=== PATIENT | male | born 1970 | race Caucasian/White ===

== ENCOUNTER 2020-11-03 19:26 | Emergency (ER) | payer OTHER, SELFPAY ==
[2020-11-03 20:30] VITALS: BP 142/94; PULSE 83; RESP 19; TEMP 37.1; O2SAT 98; BMI 31.0
--- NOTE | 2020-11-03 21:06 | HMH.EDUTC ---
[facility] [place] Disposition Clinical Impression: Cellulitis Qualifiers: Site of cellulitis: unspecified site Qualified Code(s): L03.90 - Cellulitis, unspecified Disposition: Home, Self-Care Condition on Discharge: Good Instructions: How to Care for an Insect Bite or Sting, Insect Bites and Stings, DI for Insect Bites and Stings Additional Instructions: Ice to area 20 min every couple of hours may help with pain and swelling Over the counter Benadryl may help with itching and swelling associated with reaction to sting Follow up with your Family Doctor if no improvement or any worsening of symptoms Prescriptions: cephALEXin [cephALEXin 500mg capsule*] 500 mg PO Q6H 7 Days #28 cap Transmission Status: Pending to [facility] #[id number] Referrals: Provider,Referral, MD [Primary Care Provider] - As needed Time of Disposition: 21:27 Medical Decision Making - Yury Inquiry Pt receiving controlled substance: No Yury was queried for this patient: No Vital Signs: 11/03/20 20:30 11/03/20 21:15 Temperature 98.8 F 98.8 F Temperature Source Oral Pulse Rate 83 Pulse Rate [Right Brachial] 83 Respiratory Rate 19 19 Blood Pressure 142/94 H Blood Pressure [Right Arm] 142/94 H Blood Pressure Mean [Right Arm] 110 Blood Pressure Source [Right Arm] Automatic Cuff Blood Pressure Position [Right Arm] Sitting 02 Sat by Pulse Oximetry 98 Oxygen Delivery Method Room Air Orders (Tests/Meds): ED MEDICATIONS Discontinued Medications Generic Name Dose Route Start Last Admin Trade Name Freq PRN Reason Stop Dose Admin Methylprednisolone Sodium Succinate 125 mg 11/03/20 21:08 11/03/20 21:15 Methylprednisolone Sod Succ 125mg Vial IM 11/03/20 21:09 125 mg ONCE ONE Administration [facility] [place] HPI - General Stated complaint: insect bite l Leg Time Seen by Provider: 11/03/20 21:06 Mode of Arrival: Ambulatory Source of Information: Patient Limitations: No Limitations Description of Symptoms (Recalled from Triage Doc. by RN): PATIENT C/O POSSIBLE BEE STING OR SPIDER BITE TO LEFT ANKLE SINCE TUESDAY HEENT Symptoms (Recalled from RN notes): No Resp Symptoms (Recalled from RN notes): No Skin Symptoms (Recalled from RN notes): Yes MS Symptoms (Recalled from RN notes): No Functional Status (Recalled from RN notes): WNL - History of Present Illness Provider Complaint: Patient state that he was cutting grass on Tuesday when something stung him on his left ankle States that noticed he had some swelling and he started watching it State that since then it has continued to swell and feeling tight and this evening the swelling was moving on up his leg red and warm so he came in to get it checked - Related Data Previous Rx's Medication Instructions Recorded cephALEXin [cephALEXin 500mg 500 mg PO Q6H 7 Days #28 cap 11/03/20 capsule*] Allergies Allergy/AdvReac Type Severity Reaction Status Date / Time No Known Allergies Allergy Verified 11/03/20 21:02 - Worker's Comp Is this a Worker's Comp case?: No [facility] History - Hepatitis A Screen Drug use history?: No High risk sexual behaviors?: No History of sexually transmitted infection?: No Currently employed?: No Childcare worker?: No Do you have indoor plumbing?: Yes Do you have electricity?: Yes Attestation statement:: This patient has been screened for Hepatitis A risk factors. I have reviewed the patient's past medical history: Yes Medical History: Reports:: Cancer - Social History Alcohol Intake: never Occupational Status: other ROS Obtained: Yes All systems reviewed & no additional complaints, Yes Systems reviewed as appropriate & no additional complaints - Constitutional Constitutional: Reports system reviewed and no additional complaints, except as docu, Denies body ache, Denies chills, Denies fever(s) - ENT Ears, Nose, Mouth, and Throat: Reports system reviewed and no additional complaints, except as docu - Cardiovascular Cardiovascul
[2020-11-03 21:15] VITALS: BP 142/94; PULSE 83; RESP 19; TEMP 37.1; O2SAT 98
== END 2020-11-03 21:28 | disposition home or self-care (01) ==
PROVIDERS: Emergency Provider Nurse Practitioner
DX: L03.116 Cellulitis of left lower limb (principal); S90.562A Insect bite (nonvenomous), left ankle, initial encounter; W57.XXXA Bitten or stung by nonvenomous insect and other nonvenomous arthropods, initial encounter
CPT/HCPCS: 96372; 99202; G0463

== ENCOUNTER 2021-06-01 14:28 | Emergency (ER) | payer BC, SELFPAY ==
[2021-06-01 15:50] VITALS: BP 127/87; PULSE 88; RESP 18; TEMP 37.3; O2SAT 98; BMI 30.2
--- NOTE | 2021-06-01 15:59 | HMH.EDUTC ---
[facility] [place] Disposition Clinical Impression: Otitis media Qualifiers: Otitis media type: unspecified Laterality: right Qualified Code(s): H66.91 - Otitis media, unspecified, right ear Disposition: Home, Self-Care Condition on Discharge: Good Instructions: Middle Ear Infection, Cough Additional Instructions: *Monitor Temp, Over the counter Motrin or Tylenol as directed/as needed Tylenol every 4 hours and Motrin every 6 hours (as long as your family doctor has told you that you can take it) for fever or pain. and straight to ER if unable to lower temp less than 101.0 after medication given *Warm salt water gargles may help to soothe the throat *Throat Lozenges *Warm fluids like tea with honey may help to soothe the throat *Sleep elevated *Humidifier/Vaporizer Take medication as prescribed Follow up IMMEDIATELY for new or worsening symptoms or no Noticeable improvement over the next 48-72 hours. 911 for difficulty breathing or swallowing You were tested for today for COVID19 your test result should be back in the next 24-48 hours, you may check your results on the [facility] if you have trouble logging on you may call support If you are positive someone from the hospital will be calling you Make sure to take your Vitamins Vit. C Vit D and Zinc if you can take them Prescriptions: Benzonatate [Benzonatate 100mg cap] 100 mg PO Q8HP PRN #15 cap PRN Reason: Cough Transmission Status: Pending to [facility] Amoxicillin/Potassium Clav [Amox-Clav 875-125 mg Tablet] 1 tab PO BID #20 tab Transmission Status: Pending to [facility] methylPREDNISolone [Medrol 4mg tab] 4 mg PO DIRECTED #21 tab Transmission Status: Pending to [facility] Referrals: Provider,Referral, MD [Primary Care Provider] - As needed Forms: Work/School Release Time of Disposition: 16:11 Medical Decision Making - Yury Inquiry Pt receiving controlled substance: No Yury was queried for this patient: No Vital Signs: 06/01/21 15:50 Temperature 99.1 F Temperature Source Oral Pulse Rate [Right Radial] 88 Respiratory Rate 18 Blood Pressure [Right Arm] 127/87 Blood Pressure Mean [Right Arm] 100 Blood Pressure Source [Right Arm] Automatic Cuff Blood Pressure Position [Right Arm] Sitting 02 Sat by Pulse Oximetry 98 Oxygen Delivery Method Room Air Orders (Tests/Meds): ORDERS Category Date Time Status Covid-19 Nasal PCR ([facility]) Routine Lab 06/01/21 15:44 Received [facility] HPI - General Stated complaint: covid exposure, h/a, sore throat, fever/chills Time Seen by Provider: 06/01/21 15:59 Mode of Arrival: Ambulatory Source of Information: Patient Limitations: No Limitations Description of Symptoms (Recalled from Triage Doc. by RN): Pt stated that he has a bad SOUSA, and ear ache. This has been since yesterday. His daughter has covid, and tested + two days ago. HEENT Symptoms (Recalled from RN notes): No Resp Symptoms (Recalled from RN notes): No Skin Symptoms (Recalled from RN notes): No MS Symptoms (Recalled from RN notes): No Functional Status (Recalled from RN notes): n/a - History of Present Illness Provider Complaint: Patient states that he has been having pain in his right ear, sore throat, body aches and cough States that his and daughter did recently test positive for COVID States that today his ear was worse so he came in to get checked out - Related Data Home Medications Medication Instructions Recorded Confirmed Cetirizine HCl [Allergy Relief] 1 tab PO DAILY PRN 06/01/21 06/01/21 [place]-3 Fatty Acids/Fish Oil [Fish 1 each PO DAILY 06/01/21 06/01/21 Oil 1,000 mg Capsule] Previous Rx's Medication Instructions Recorded Amoxicillin/Potassium Clav 1 tab PO BID #20 tab 06/01/21 [Amox-Clav 875-125 mg Tablet] Benzonatate [Benzonatate 100mg 100 mg PO Q8HP PRN #15 cap 06/01/21 cap] methylPREDNISolone [Medrol 4mg 4 mg PO DIRECTED #21 tab 06/01/21 tab
[2021-06-01 16:39] VITALS: BP 127/87; PULSE 88; RESP 18; TEMP 37.3; O2SAT 98
== END 2021-06-01 16:39 | disposition home or self-care (01) ==
PROVIDERS: Emergency Provider Nurse Practitioner
DX: H66.91 Otitis media, unspecified, right ear (principal)
CPT/HCPCS: 99212; C9803; G0463; U0003; U0005

== ENCOUNTER 2021-10-03 08:08 | Emergency (ER) | payer BC, SELFPAY ==
[2021-10-03 08:21] VITALS: BP 143/82; PULSE 66; RESP 16; TEMP 36.8; O2SAT 96; BMI 31.3
[2021-10-03 08:40] LABS: Strep Scrn Group A (Rapid) Negative (Negative)
--- NOTE | 2021-10-03 08:51 | HMH.EDUTC ---
[facility] [place] Disposition Clinical Impression: Pharyngitis Qualifiers: Pharyngitis/tonsillitis etiology: unspecified etiology Qualified Code(s): J02.9 - Acute pharyngitis, unspecified Serous otitis media Qualifiers: Chronicity: acute Laterality: bilateral Recurrence: non-recurrent Qualified Code(s): H65.03 - Acute serous otitis media, bilateral Disposition: Home, Self-Care Condition on Discharge: Good Instructions: Middle Ear Infection Additional Instructions: Drink plenty of fluids. Take tylenol or ibuprofen for pain or fever. Take the medications as directed. Follow up with your regular doctor. GO TO THE ER FOR ANY WORSENING SYMPTOMS Don't start the oral steroids until tomorrow, since you had the shot here today. Prescriptions: Fluticasone Propionate [Flonase 50mcg nasal spray 16gm] 1 spr NS DAILY 30 Days #120 each Transmission Status: Received by [id number] methylPREDNISolone [Medrol] 4 mg PO DIRECTED 6 Days #21 packet Transmission Status: Received by [id number] Cefdinir [Omnicef 300mg Capsule] 300 mg PO BID #20 cap Transmission Status: Received by [id number] Referrals: Provider,Referral, [Primary Care Provider] - Time of Disposition: 09:03 Medical Decision Making - Medical Records Medical records reviewed: No: I reviewed the patient's medical records. - Yury Inquiry Pt receiving controlled substance: No Vital Signs: 10/03/21 08:21 10/03/21 09:04 Temperature 98.2 F 98.2 F Temperature Source Oral Pulse Rate 66 Pulse Rate [Left] 66 Respiratory Rate 16 16 Blood Pressure 143/82 H Blood Pressure [Right Arm] 143/82 H Blood Pressure Mean [Right Arm] 102 02 Sat by Pulse Oximetry 96 - Lab Data Lab results reviewed: Yes: I reviewed the patient's lab results. Lab Results 10/03/21 08:20: Group A Strep Rapid Negative Orders (Tests/Meds): ED MEDICATIONS Discontinued Medications Generic Name Dose Route Start Last Admin Trade Name Freq PRN Reason Stop Dose Admin Methylprednisolone Sodium Succinate 125 mg 10/03/21 08:56 10/03/21 09:03 Methylprednisolone Sod Succ 125mg Vial IM 10/03/21 08:57 125 mg ONCE ONE Administration ORDERS Category Date Time Status Strep Screen Confirmation Stat Micro 10/03/21 08:20 Received [facility] [place] HPI - General Stated complaint: sore thoat Time Seen by Provider: 10/03/21 08:52 Description of Symptoms (Recalled from Triage Doc. by RN): patient comes in with complaints of sore throat, soreness is now going down side of neck. symptoms began 5 days ago. HEENT Symptoms (Recalled from RN notes): Yes Resp Symptoms (Recalled from RN notes): No Skin Symptoms (Recalled from RN notes): No MS Symptoms (Recalled from RN notes): No Functional Status (Recalled from RN notes): wnl - History of Present Illness Provider Complaint: He c/o sore throat for the past 2 days. - Related Data Home Medications Medication Instructions Recorded Confirmed Cetirizine HCl [Allergy Relief] 1 tab PO DAILY PRN 06/01/21 06/01/21 [place]-3 Fatty Acids/Fish Oil [Fish 1 each PO DAILY 06/01/21 06/01/21 Oil 1,000 mg Capsule] Previous Rx's Medication Instructions Recorded Amoxicillin/Potassium Clav 1 tab PO BID #20 tab 06/01/21 [Amox-Clav 875-125 mg Tablet] Benzonatate [Benzonatate 100mg 100 mg PO Q8HP PRN #15 cap 06/01/21 cap] methylPREDNISolone [Medrol 4mg 4 mg PO DIRECTED #21 tab 06/01/21 tab] Cefdinir [Omnicef 300mg Capsule] 300 mg PO BID #20 cap 10/03/21 Fluticasone Propionate [Flonase 1 spr NS DAILY 30 Days #120 each 10/03/21 50mcg nasal spray 16gm] methylPREDNISolone [Medrol] 4 mg PO DIRECTED 6 Days #21 10/03/21 packet Allergies Allergy/AdvReac Type Severity Reaction Status Date / Time No Known Allergies Allergy Verified 10/03/21 08:23 - Worker's Comp Is this a Worker's Comp case?: No [facility] History - Hepatitis A Screen Attestation statement::
[2021-10-03 09:04] VITALS: BP 143/82; PULSE 66; RESP 16; TEMP 36.8
== END 2021-10-03 09:11 | disposition home or self-care (01) ==
PROVIDERS: Emergency Provider Nurse Practitioner Family
DX: H65.03 Acute serous otitis media, bilateral (principal); J02.9 Acute pharyngitis, unspecified
CPT/HCPCS: 87430; 96372; 99212; G0463

== ENCOUNTER 2021-10-12 08:10 | Emergency (ER) | payer BC, SELFPAY ==
[2021-10-12 08:32] VITALS: BP 158/90; PULSE 81; RESP 16; TEMP 36.9; O2SAT 95; BMI 31.3
--- NOTE | 2021-10-12 08:41 | HMH.EDUTC ---
[facility] [place] Clinical Impression: URI (upper respiratory infection) Qualifiers: URI type: unspecified URI Qualified Code(s): J06.9 - Acute upper respiratory infection, unspecified Disposition: Home, Self-Care Condition on Discharge: Good Instructions: Sore Throat Additional Instructions: *Monitor Temp, Over the counter Motrin or Tylenol as directed/as needed Tylenol every 4 hours and Motrin every 6 hours (as long as your family doctor has told you that you can take it) for fever or pain. and straight to ER if unable to lower temp less than 101.0 after medication given *Warm salt water gargles may help to soothe the throat *Throat Lozenges *Warm fluids like tea with honey may help to soothe the throat *Sleep elevated *Humidifier/Vaporizer Your throat swab was sent for culture. Those results are typically sent to your primary care. Be sure to follow up in 2-3 days with your family doctor/primary care physician if no improvement so they can review those result and treat if necessary. If you don?t have a primary care doctor, I recommend you get one but in the mean time, you will have to return to a walk in clinic Follow up IMMEDIATELY for new or worsening symptoms or no Noticeable improvement over the next 48-72 hours. 911 for difficulty breathing or swallowing You were tested for today for COVID19 your test result should be back in the next 24-48 hours, you may check your results on the [facility] for your results Make sure to take your Vitamins Vit. C Vit D and Zinc if you can take them Referrals: Provider,Referral, [Primary Care Provider] - As needed Forms: Work/School Release Medical Decision Making - Yury Inquiry Pt receiving controlled substance: No Yury was queried for this patient: No Vital Signs: 10/12/21 08:32 Temperature 98.5 F Temperature Source Oral Pulse Rate [Left] 81 Respiratory Rate 16 Blood Pressure [Right Arm] 158/90 H Blood Pressure Mean [Right Arm] 112 02 Sat by Pulse Oximetry 95 - Lab Data Lab results reviewed: Yes: I reviewed the patient's lab results. Lab Results 10/12/21 08:30: Group A Strep Rapid Negative Orders (Tests/Meds): ORDERS Category Date Time Status Covid-19 Nasal PCR ([facility]) Routine Lab 10/12/21 08:30 Received Strep Screen Confirmation Stat Micro 10/12/21 08:30 Received [facility] [place]PI - General Stated complaint: sore throat, ear pain Time Seen by Provider: 10/12/21 08:41 Description of Symptoms (Recalled from Triage Doc. by RN): patient comes in for sore throat and neck. patient was seen here on 10/03 and states that symptoms have not resolved. HEENT Symptoms (Recalled from RN notes): Yes Resp Symptoms (Recalled from RN notes): No Skin Symptoms (Recalled from RN notes): No MS Symptoms (Recalled from RN notes): No Functional Status (Recalled from RN notes): wnl - History of Present Illness Provider Complaint: Patient states that she has been having sore throat and tenderness in lymph nodes on right side of neck State that he was seen on 10/03 and given medication but not helped much States that today he was still having sore throat so he came back in - Related Data Home Medications Medication Instructions Recorded Confirmed Cetirizine HCl [Allergy Relief] 1 tab PO DAILY PRN 06/01/21 10/12/21 [place]-3 Fatty Acids/Fish Oil [Fish 1 each PO DAILY 06/01/21 10/12/21 Oil 1,000 mg Capsule] Allergies Allergy/AdvReac Type Severity Reaction Status Date / Time No Known Allergies Allergy Verified 10/03/21 08:23 - Worker's Comp Is this a Worker's Comp case?: No [facility] History - Hepatitis A Screen Attestation statement:: This patient has been screened for Hepatitis A risk factors. I have reviewed the patient's past medical history: Yes Medical History: Reports:: Cancer - Social History Alcohol Intake: never Occupational Status: other ROS Obtained: Yes All systems reviewed & no additional complaints, Yes Systems reviewed a
[2021-10-12 08:42] LABS: Strep Scrn Group A (Rapid) Negative (Negative)
[2021-10-12 08:54] VITALS: BP 158/90; PULSE 81; RESP 16; TEMP 36.9
== END 2021-10-12 08:55 | disposition home or self-care (01) ==
PROVIDERS: Emergency Provider Nurse Practitioner
DX: J06.9 Acute upper respiratory infection, unspecified (principal)
CPT/HCPCS: 87430; 99212; C9803; G0463; U0003; U0005